=== PATIENT | male | born 1985 | race Hispanic/Latino ===

== ENCOUNTER → 2021-04-23 | Day surgery (SDC) | payer OTHER ==
[~2021-04-23] MED LIST: GLUCAGON FOR INJ 1 MG VIAL ONE; LIDOCAINE HCL 2% LOCAL INJ 5 ML SDV VIAL INJ ONE; MIDAZOLAM HCL 2 MG/2 ML VIAL ONE
[2021-04-23 09:25] VITALS: BP 127/92
== END | disposition home or self-care (01) ==
LOC: OR 05:55
PROVIDERS: ATTEND Internal Medicine Gastroenterology
DX: K29.50 Unspecified chronic gastritis without bleeding (principal); K29.80 Duodenitis without bleeding; K21.9 Gastro-esophageal reflux disease without esophagitis; K20.90 Esophagitis, unspecified without bleeding; G47.33 Obstructive sleep apnea (adult) (pediatric); R03.0 Elevated blood-pressure reading, without diagnosis of hypertension; Z68.31 Body mass index [BMI] 31.0-31.9, adult
CPT/HCPCS: 43239; J1610; J2001; J2250